=== PATIENT | female | born 1940 | race Caucasian/White ===

== ENCOUNTER 2019-04-19 08:00 | Inpatient (IN) | payer OTHER ==
[~2019-04-19] VITALS: Ht 157.5 cm; Wt 90.7 kg
[2019-04-19] MEDS ORDERED: HUMALOG100 UNIT/1 (10:36)
[2019-04-19] MEDS ORDERED: SYNTHROID50 MCG PO (10:37)
[2019-04-19] MEDS ORDERED: HUMULIN N100 UNIT/2 (10:37)
[2019-04-19] MEDS ORDERED: GLIMEPIRIDE4 MG PO (10:37)
[2019-04-19] MEDS ORDERED: OMEGA-31000 MG PO (10:39)
[2019-04-19] MEDS ORDERED: QUINOPRIL PO (10:39)
[2019-04-19] MEDS ORDERED: BETIMOL5 M1 OTIC (10:40)
[2019-04-19] MEDS ORDERED: LATANOPROST2.5 ML OP (10:40)
[2019-04-19] MEDS ORDERED: OMEPRAZOLE20 MG PO (10:40)
[2019-04-19] MEDS ORDERED: GABAPENTIN300 MG PO (10:41)
[2019-04-19] MEDS ORDERED: REFRESH OPTIVE10 ML OTIC (10:41)
[2019-04-19] MEDS ORDERED: CYMBALTA60 MG PO (10:42)
[2019-04-19] MEDS ORDERED: CARDIZEM CD240 MG PO (13:18)
[2019-04-19] MEDS ORDERED: [UNRECOGNIZED DRUG - OTHER] PO (13:19)
[2019-04-19] MEDS ORDERED: LANTUS SOL100 UNIT/1 SUBCUTANEO (13:21)
[2019-04-19] MEDS ORDERED: SINGULAIR10 MG PO (13:28)
[2019-04-25] MEDS ORDERED: QUINAPRIL HCL20 MG PO (09:35)
[2019-04-27] MEDS ORDERED: CIPRO500 MG PO (14:10)
[2019-04-27] MEDS ORDERED: PERCOCET 5-3251 EACH PO (14:10)
[2019-04-27] MEDS ORDERED: ELIQUIS2.5 MG PO (14:10)
== END 2019-04-27 16:28 | DRG 470 ==
LOC: O/R 04-25 06:15 → SURG 04-25 06:15 → SURH 04-25 08:00 → SURG 04-25 09:36
PROVIDERS: ADMIT Orthopaedic Surgery
PROC: 0MNP0ZZ Release Left Knee Bursa and Ligament, Open Approach (ICD-10-PCS; 2019-04-25)
PROC: 0SRD0J9 Replacement of Left Knee Joint with Synthetic Substitute, Cemented, Open Approach (ICD-10-PCS; principal; 2019-04-25 08:15)
DX: M17.12 Unilateral primary osteoarthritis, left knee (principal); E11.9 Type 2 diabetes mellitus without complications; I10 Essential (primary) hypertension; J45.998 Other asthma; M81.0 Age-related osteoporosis without current pathological fracture; Z88.0 Allergy status to penicillin

== ENCOUNTER 2022-03-02 09:02 | Outpatient (CLI) | payer OTHER ==
[~2022-03-02 09:02] MED LIST: BETIMOL5 M1 OTIC; CARDIZEM CD240 MG PO; CIPRO500 MG PO; CYMBALTA60 MG PO; ELIQUIS2.5 MG PO; GABAPENTIN300 MG PO; GLIMEPIRIDE4 MG PO; HUMALOG100 UNIT/1; HUMULIN N100 UNIT/2; LANTUS SOL100 UNIT/1 SUBCUTANEO; LATANOPROST2.5 ML OP; OMEGA-31000 MG PO; OMEPRAZOLE20 MG PO; PERCOCET 5-3251 EACH PO; QUINAPRIL HCL20 MG PO; QUINOPRIL PO; REFRESH OPTIVE10 ML OTIC; SINGULAIR10 MG PO; SYNTHROID50 MCG PO; [UNRECOGNIZED DRUG - OTHER] PO
== END 2022-03-02 09:09 | disposition home or self-care (01) ==
LOC: RX STUDY 09:02
PROVIDERS: ATTEND Internal Medicine Gastroenterology
DX: R13.10 Dysphagia, unspecified (principal)

== ENCOUNTER 2024-07-05 05:35 | Day surgery (SDC) | payer OTHER ==
[~2024-07-05] VITALS: Ht 157.5 cm; Wt 97.1 kg
[~2024-07-05 05:35] MED LIST changes: +ANASTROZOLE1 MG PO; +CARDURA XL4 MG PO; +CIPROFLOXACIN IN 5 % DEXTROSE 400 MG/200 ML PIGGYBAG IV SCH; +CYMBALTA20 MG PO
[2024-07-05] MEDS ORDERED: CIPROFLOXACIN IN 5 % DEXTROSE 400 MG/200 ML PIGGYBAG IV ONE (07:36)
[2024-07-05] MEDS ORDERED: BUPIVACAINE HCL/MPF 0.5% 30ML VIAL ONE (07:43)
[2024-07-05] MEDS ORDERED: ENALAPRILAT DIHYDRATE 1.25 MG/ML VIAL IV ONE ×3 (08:48→09:20)
[2024-07-05] MEDS ORDERED: hydrALAZINE HCL 20 MG VIAL ONE (09:54)
== END 2024-07-05 11:25 | disposition home or self-care (01) ==
LOC: CIR.AMB 05:35
PROVIDERS: ATTEND Surgery Surgery of the Hand
DX: M65.841 Other synovitis and tenosynovitis, right hand (principal); Z88.6 Allergy status to analgesic agent; Z88.0 Allergy status to penicillin; Z91.09 Other allergy status, other than to drugs and biological substances; I10 Essential (primary) hypertension; J45.909 Unspecified asthma, uncomplicated; R32 Unspecified urinary incontinence; E03.9 Hypothyroidism, unspecified; K21.9 Gastro-esophageal reflux disease without esophagitis; E11.9 Type 2 diabetes mellitus without complications